=== PATIENT | male | born 1985 | race Caucasian/White ===

== ENCOUNTER 2023-10-19 09:22 | Emergency (ER) | payer SELFPAY ==
[2023-10-19] MEDS ORDERED: ACETAMINOPHEN 325 MG TABLET ONE (09:54)
[2023-10-19] MEDS ORDERED: LEVALBUTEROL 1.25 MG/3 ML NEB ONE ×2 (09:54→13:09)
--- NOTE | 2023-10-19 10:12 | RAD REPORT ---
EXAM DESCRIPTION: RAD - Chest Pa And Lat (2 Views) - 10/19/2023 9:53 am CLINICAL HISTORY: fever, cough COMPARISON: No comparisons TECHNIQUE: PA and lateral views of the chest were obtained. FINDINGS: The lungs are clear. Heart size is normal and central vasculature is within normal limits. No pleural effusion or pneumothorax seen. No acute bony finding noted. IMPRESSION: No acute cardiopulmonary process.
[2023-10-19 10:51] LABS: Absolute Lymphocytes (CBC) 1.3 K/uL (0.7-4.9); Absolute Neutrophil 5.2 K/uL (1.8-8.0); Basophils % 0.2 % (0-1.3); Eosinophils % 0.5 % (0-4.4); Hematocrit 37.3 % (39.6-49.0); Hemoglobin 13.2 g/dL (13.6-17.9); Lymphocytes % 17.4 % (15.3-44.8); MCHC 35.3 g/dL (32.0-36.0); MCV 87.7 fL (80-100); MPV 7.8 fL (7.6-11.3); Neutrophils % 68.9 % (41.7-73.7); Platelets 248 thou/uL (152-406); RBC Red Blood Cell Count 4.25 M/uL (4.33-5.43); Red Cell Distribution Width 13.1 % (12.1-15.2)
[2023-10-19 11:02] LABS: SARS-CoV-2 Antigen CONTROL BLUE LINE VIS/BG OK; SARS-CoV-2 Antigen Rapid Res Negative (Negative)
[2023-10-19 11:15] LABS: Albumin 3.2 g/dL (3.4-5.0); Albumin/Globulin Ratio 0.7 (1.1-1.8); Anion Gap 12.1 mEq/L (5.0-15.0); Bilirubin Total 0.6 mg/dL (0.2-1.0); Globulin 4.4 g/dL (2.3-3.5); Potassium 3.1 mEq/L (3.5-5.1); Protein, Total 7.6 g/dL (6.4-8.2)
[2023-10-19 11:23] LABS: PTT, Activated Partial Thromb 28.8 SECONDS (24.3-36.9); Protime INR 1.26
[2023-10-19] MEDS ORDERED: levoFLOXacin 750 MG TAB ONE (13:09)
--- NOTE | 2023-10-19 13:22 | ER ---
Nurse's Notes [facility] Name: Francesco Bhandari Age: 38 yrs Sex: Male : 1985 Arrival Date: 10/19/2023 Time: 09:22 Bed 15 Private MD: Diagnosis: Pneumonia, unspecified organism Presentation: 10/18 09:32 Chief complaint: Patient states: he has been having chest congestion, fever and his ap3 chest feels heavy when he lays down. patient also reports shortness of breath. Coronavirus screen: Client presents with at least one sign or symptom that may indicate coronavirus-19. Ebola Screen: No symptoms or risks identified at this time. Initial Sepsis Screen: Does the patient meet any 2 criteria? RR > 20 per min. HR > 90 bpm. Yes Does the patient have a suspected source of infection? No. Patient's initial sepsis screen is negative. Risk Assessment: Do you want to hurt yourself or someone else? Patient reports no desire to harm self or others. Onset of symptoms was October 15, 2023. 09:32 Method Of Arrival: Ambulatory ap3 09:32 Acuity: KIM 3 ap3 Triage Assessment: 09:39 General: Appears ill, Behavior is calm, cooperative, appropriate for age, Reports ap3 chills for fever for feeling ill for. Pain: Complains of pain in chest Pain currently is 6 out of 10 on a pain scale. Quality of pain is described as burning. Neuro: Level of Consciousness is awake, alert, obeys commands, Oriented to person, place, time, situation, Appropriate for age. Cardiovascular: Patient's skin is warm and dry. Respiratory: Reports shortness of breath at rest cough that is pain with cough Airway is patent Respiratory pattern is regular, symmetrical, tachypnea Onset: The symptoms/episode began/occurred gradually. Historical: - Allergies: 09:37 No Known Allergies; ap3 - Home Meds: 09:37 None [Active]; ap3 - PMHx: 09:37 None; ap3 - Immunization history:: Client reports receiving the 2nd dose of the Covid vaccine. - Infectious Disease History:: Denies. - Social history:: Smoking status: Patient denies any tobacco usage or history of. - Family history:: not pertinent. - Hospitalizations: : No recent hospitalization is reported. Screenin:41 Abuse screen: Denies threats or abuse. Nutritional screening: No deficits noted. ap3 Tuberculosis screening: No symptoms or risk factors identified. 10:31 [facility] ED Fall Risk Assessment (Adult) History of falling in the last 3 months, kc6 including since admission No falls in past 3 months (0 pts) Confusion or Disorientation No (0 pts) Intoxicated or Sedated No (0 pts) Impaired Gait No (0 pts) Mobility Assist Device Used No (0 pt) Altered Elimination No (0 pt) Score/Fall Risk Level 0 - 2 = Low Risk. Assessment: 10:32 General: Appears in no apparent distress. comfortable, well groomed, well developed, kc6 Behavior is calm, cooperative, appropriate for age, Reports chills for 12-24 hours, fever for 12-24 hours, feeling ill for 12-24 hours. Pain: Denies pain. Neuro: Level of Consciousness is awake, alert, obeys commands, Oriented to person, place, time, situation, Appropriate for age. Cardiovascular: Denies chest pain, Heart tones S1 S2 present Capillary refill < 3 seconds Rhythm is sinus tachycardia. Respiratory: Reports shortness of breath on exertion cough that is Airway is patent Trachea midline Respiratory effort is even, unlabored, Respiratory pattern is regular, symmetrical, Breath sounds are diminished bilaterally. GI: No signs and/or symptoms were reported involving the gastrointestinal system. : No signs and/or symptoms were reported regarding the genitourinary system. EENT: Reports nasal congestion pain when swallowing. Derm: No signs and/or symptoms reported regarding the dermatologic system. Skin is intact, is healthy with good turgor, Skin is pink, warm \T\ dry. Musculoskeletal: No signs and/or symptoms reported regarding the musculoskeletal system. Circulation, motion, and sensation intact. Capillary refill < 3 seconds, Range of motion: intact in all extremities. 11:26 Reassessment: Patient appears in no apparent distress at this time. No changes from kc6 previously documented assessment. Patient and/or family updated on plan of care and expected duration. Pain level reassessed. Patient is alert, oriented x 3, equal unlabored respirations, skin warm/dry/pink. Vital Signs: 09:32 BP 151 / 86; Pulse 114; Resp 22; Temp 99.7; Pulse Ox 93% on R/A; ap3 10:31 BP 135 / 81; Pulse 109; Resp 15 S; Pulse Ox 89% on R/A; kc6 10:31 Pulse Ox 93% on 2.5 lpm NC; kc6 11:26 BP 123 / 76; Pulse 92; Resp 18 S; Temp 98.6(O); Pulse Ox 98% on 2.5 lpm NC; kc6 12:00 BP 117 / 76; Pulse 86; Resp 18; Pulse Ox 96% on R/A; tl4 12:30 BP 126 / 74; Pulse 94; Resp 18; Pulse Ox 95% on R/A; tl4 13:00 BP 113 / 72; Pulse 84; Resp 18; Pulse Ox 94% on R/A; tl4 13:30 BP 123 / 69; Pulse 96; Resp 14; Temp 98.3(O); Pulse Ox 100% on R/A; tl4 ED Course: 09:24 Patient arrived in ED. im 09:24 Rajeev Almaraz MD is Attending Physician. rn 09:37 Triage completed. ap3 09:41 Arm band placed on right wrist. ap3 09:51 Kassidy Gallagher RN is Primary Nurse. kc6 09:55 XRAY Chest Pa And Lat (2 Views) In Process Unspecified. EDMS 10:31 Patient has correct armband on for positive identification. Bed in low position. Call kc6 light in reach. Side rails up X2. night monitor on. Pulse ox on. NIBP on. Pillow given. 10:31 SARS RAPID Sent. em1 10:31 Flu Sent. em1 10:40 Initial lab(s) drawn, by me, sent to lab. First set of blood cultures drawn by me, EKG cc6 done, by ED staff, reviewed by Rajeev Almaraz MD. 10:44 Inserted saline lock: 20 gauge in left wrist, using aseptic technique. Blood collected. cc6 Flushed with 10 mL NS. 12:05 Report given to Humza Preciado RN. kc6 13:00 Provided Education on: call DEISY angel process. tl4 13:25 No provider procedures requiring assistance completed. tl4 13:45 IV discontinued, intact, bleeding controlled, No redness/swelling at site. Pressure tl4 dressing applied. Administered Medications: 10:07 Drug: Acetaminophen PO 650 mg PO once Route: PO; kc6 14:14 Follow up: Response: No adverse reaction tl4 10:07 Drug: Levalbuterol Inhalation 1.25 mg Inhalation once Route: Inhalation; kc6 14:14 Follow up: Response: No adverse reaction tl4 13:10 Drug: Levalbuterol Inhalation 1.25 mg Inhalation once {Note: via nebulizer set up with tl4 mask and oxygen at 10 lpm.} Route: Inhalation; 14:13 Follow up: Response: No adverse reaction tl4 13:12 Drug: LevOfloxacin PO 750 mg PO once Route: PO; tl4 14:14 Follow up: Response: No adverse reaction tl4 Medication: 13:30 VIS not applicable for this client. tl4 Outcome: 13:21 Discharge ordered by . rn 13:45 Discharged to home ambulatory, tl4 13:45 Condition: stable 13:45 Discharge instructions given to patient, Instructed on discharge instructions, follow up and referral plans. medication usage, Demonstrated understanding of instructions, follow-up care, medications, Prescriptions given X 2, 14:13 Patient left the ED. tl4 Signatures: Dispatcher [employer] EDMS Rajeev Almaraz MD MD rn Martinez, Eric em1 Rosie Dominguez RN RN ap3 Kassidy Gallagher RN RN kc6 Deya Davalos Toni RN RN tl4 Elaina Phillips RN RN cc6
--- NOTE | 2023-10-19 13:22 | EDPHYS ---
Physician Documentation [facility] Name: Francesco Bhandari Age: 38 yrs Sex: Male : 1985 Arrival Date: 10/19/2023 Time: 09:22 Bed 15 Private MD: ED Physician Rajeev Almaraz HPI: 10/18 09:42 This 38 yrs old Male presents to ER via Ambulatory with complaints of Flu Symptoms, rn Chest Congestion. 09:42 The patient or guardian reports cough, flu symptoms, low-grade fever, myalgias. Onset: rn The symptoms/episode began/occurred 2 day(s) ago. Severity of symptoms: At their worst the symptoms were moderate, in the emergency department the symptoms are unchanged. Modifying factors: The symptoms are alleviated by nothing, the symptoms are aggravated by nothing. Associated signs and symptoms: Pertinent positives: fever, Pertinent negatives: chest pain, rhinorrhea, vomiting. The patient has not experienced similar symptoms in the past. Patient reports fever, chills, cough, shortness of breath for the last couple of days. No chronic lung problems. Does not smoke or vape. Does report exposure to unknown illness recently at work.. Historical: - Allergies: 09:37 No Known Allergies; ap3 - Home Meds: 09:37 None [Active]; ap3 - PMHx: 09:37 None; ap3 - Immunization history:: Client reports receiving the 2nd dose of the Covid vaccine. - Infectious Disease History:: Denies. - Social history:: Smoking status: Patient denies any tobacco usage or history of. - Family history:: not pertinent. - Hospitalizations: : No recent hospitalization is reported. ROS: 09:42 Constitutional: Positive for fever and chills ENT: Negative for injury, pain, and employee health rn, Neck: Negative for injury, pain, and swelling, Cardiovascular: Negative for chest pain, palpitations, and edema, Respiratory: Positive for cough and shortness of breath Abdomen/GI: Negative for abdominal pain, nausea, vomiting, diarrhea, and constipation, MS/Extremity: Negative for injury and deformity, Skin: Negative for injury, rash, and discoloration, Neuro: Positive for generalized weakness Exam: 09:42 Constitutional: This is a well developed, well nourished patient who is awake, alert, rn mild tachypnea ENT: No stridor Cardiovascular: Tachycardic, regular. No pulse deficits. Respiratory: Mild tachypnea Abdomen/GI: Soft, non-tender MS/ Extremity: Pulses equal, no cyanosis. Neurovascular intact. Full, normal range of motion. Equal circumference. Neuro: Awake and alert, GCS 15 13:13 ECG was reviewed by the Attending Physician. rn Vital Signs: 09:32 BP 151 / 86; Pulse 114; Resp 22; Temp 99.7; Pulse Ox 93% on R/A; ap3 10:31 BP 135 / 81; Pulse 109; Resp 15 S; Pulse Ox 89% on R/A; kc6 10:31 Pulse Ox 93% on 2.5 lpm NC; kc6 11:26 BP 123 / 76; Pulse 92; Resp 18 S; Temp 98.6(O); Pulse Ox 98% on 2.5 lpm NC; kc6 12:00 BP 117 / 76; Pulse 86; Resp 18; Pulse Ox 96% on R/A; tl4 12:30 BP 126 / 74; Pulse 94; Resp 18; Pulse Ox 95% on R/A; tl4 13:00 BP 113 / 72; Pulse 84; Resp 18; Pulse Ox 94% on R/A; tl4 13:30 BP 123 / 69; Pulse 96; Resp 14; Temp 98.3(O); Pulse Ox 100% on R/A; tl4 MDM: 09:24 Patient medically screened. rn 13:19 Differential Diagnosis: Bronchitis Influenza Upper Respiratory Infection Viral Syndrome rn Pneumonia. Data reviewed: vital signs, nurses notes, lab test result(s), radiologic studies, plain films, I have discussed the patient's presentation/case with the attending Emergency Department Physician; and as a result, I will discharge patient. Counseling: I had a detailed discussion with the patient and/or guardian regarding the historical points, exam findings, and any diagnostic results supporting the discharge/admit diagnosis, lab results, radiology results, the need for outpatient follow up, to return to the emergency department if symptoms worsen or persist or if there are any questions or concerns that arise at home. Response to treatment: the patient's symptoms have markedly improved after treatment, and as a result, I will discharge patient. Special discussion: Based on the patient's Hx, exam, and Dx evaluation, there is no indication for emergent surgery or inpatient Tx. It is understood by the patient/guardian that if the Sx's persist or worsen they need to return immediately for re-evaluation. I discussed with the patient/guardian in detail that at this point there is no indication for admission to the hospital. It is understood, however, that if the symptoms persist or worsen the patient needs to return immediately for re-evaluation. ED course: Patient feels much better. Breathing treatment helped him he states and he coughed up blood more sputum. Chest x-ray negative for pneumothorax or pneumonia. Viral studies negative. Will send home with inhaler and antibiotics.. 10/18 09:25 Order name: Flu; Complete Time: 11:28 rn 10/18 09:25 Order name: SARS RAPID; Complete Time: 11:28 rn 10/18 09:44 Order name: Blood Culture Adult (2) rn 10/18 09:44 Order name: CBC with Diff; Complete Time: 11:28 rn 10/18 09:44 Order name: CMP; Complete Time: 11:28 rn 10/18 09:44 Order name: Lactate w/ 2H reflex if indic.; Complete Time: 11:28 rn 10/18 09:44 Order name: Protime (+inr); Complete Time: 11:28 rn 10/18 09:44 Order name: Ptt, Activated; Complete Time: 11:28 rn 10/18 09:40 Order name: XRAY Chest Pa And Lat (2 Views); Complete Time: 10:13 ap3 10/18 09:44 Order name: EKG; Complete Time: 09:45 rn 10/18 09:44 Order name: Accucheck; Complete Time: 10:48 rn 10/18 09:44 Order name: Cardiac monitoring; Complete Time: 10:07 rn 10/18 09:44 Order name: EKG - Nurse/Tech; Complete Time: 10:07 rn 10/18 09:44 Order name: IV Saline Lock - Large Bore; Complete Time: 10:48 rn 10/18 09:44 Order name: Labs collected and sent; Complete Time: 10:48 rn 10/18 09:44 Order name: O2 Per Protocol; Complete Time: 09:51 rn 10/18 09:44 Order name: O2 Sat Monitoring; Complete Time: 09:51 rn 10/18 09:44 Order name: Vital Signs; Complete Time: 09:51 rn EC:13 Rate is 106 beats/min. Rhythm is regular. QRS [place] is Normal. [place] interval is normal. rn QRS interval is normal. QT interval is normal. No Q waves. T waves are Normal. No ST changes noted. Clinical impression: Sinus tachycardia. Interpreted by me. Reviewed by me. Administered Medications: 10:07 Drug: Acetaminophen PO 650 mg PO once Route: PO; kc6 14:14 Follow up: Response: No adverse reaction tl4 10:07 Drug: Levalbuterol Inhalation 1.25 mg Inhalation once Route: Inhalation; kc6 14:14 Follow up: Response: No adverse reaction tl4 13:10 Drug: Levalbuterol Inhalation 1.25 mg Inhalation once {Note: via nebulizer set up with tl4 mask and oxygen at 10 lpm.} Route: Inhalation; 14:13 Follow up: Response: No adverse reaction tl4 13:12 Drug: LevOfloxacin PO 750 mg PO once Route: PO; tl4 14:14 Follow up: Response: No adverse reaction tl4 Disposition Summary: 10/19/23 13:21 Discharge Ordered Notes: Location: Home rn Problem: new rn Symptoms: have improved rn Condition: Stable rn Diagnosis - Pneumonia, unspecified organism rn Followup: rn - With: Private Physician - When: As needed - Reason: Recheck today's complaints, Re-evaluation by your physician Discharge Instructions: - Discharge Summary Sheet rn - Community-Acquired Pneumonia, Adult rn Forms: - Medication Reconciliation Form rn - Antibiotic rn social work - Prescription Opioid Use rn - Patient Portal Instructions rn - Leadership Thank You Letter rn Prescriptions: - albuterol sulfate 90 mcg/actuation Inhalation HFA Aerosol Inhaler - inhale 2 puff INHALATION route every 4 to 6 hours As needed as needed for rn bronchospasm; administer via ventilator; 1 unit; Refills: 0, Product Selection Permitted - levofloxacin 500 mg Oral tablet - take 1 tablet ORAL route once daily for 7 days; 7 tablet; Refills: 0, Product rn Selection Permitted Signatures: Dispatcher [employer] EDMS Rajeev Almaraz MD MD rn Prokisch, Amanda RN RN [email or web address] Kassidy Gallagher RN RN kc6 Humza Magana RN RN tl4 Corrections: (The following items were deleted from the chart) 09:25 09:25 Influenza Screen (A \T\ B)+BA.LAB.BRZ ordered. EDAK EDMS 09:25 09:25 SARS-COV-2 Antigen Rapid+I.LAB.WILFRIDO ordered. EDMS EDMS
[2023-10-19 15:01] VITALS: BP 123/69; TEMP 98.3; O2SAT 100
--- NOTE | 2023-10-20 14:10 | EKG ---
Test Date: 2023-10-19 Test Time: 10:06:45 Parliamentary Librarian: EMMANUEL MEASUREMENT RESULTS: Intervals: Rate: 106 OR: 134 QRSD: 88 QT: 346 QTc: 459 [place]: P: 39 OR: 134 QRS: 66 T: 31 INTERPRETIVE STATEMENTS: Sinus tachycardia Otherwise normal ECG No previous ECG available for comparison Electronically Signed On 10-20-23 14:05:59 CDT by Jair Blanco
== END 2023-10-19 14:13 | disposition home or self-care (01) ==
LOC: ER 09:22
DX: J18.9 Pneumonia, unspecified organism (principal); Z11.52 Encounter for screening for COVID-19
CPT/HCPCS: 36415; 71046; 80053; 83605; 85025; 85610; 85730; 87040; 87804; 87811; 93005; 99285; J7614